=== PATIENT | female | born 1960 | race Caucasian/White ===

== ENCOUNTER 2019-01-03 17:59 | Emergency (ER) | payer OTHER ==
[2019-01-03 18:19] VITALS: BP 154/100; PULSE 97; TEMP 98.9; BMI 27.3
[2019-01-03 19:11] LABS: BASO % 0.5 % (0-2.0); EOS % 0.7 % (0-4.5); HEMATOCRIT 38.5 % (32.4-45.2); MCH 29.3 pg (25.7-33.7); MCHC 33.7 g/dl (32.0-36.0); MEAN PLT VOLUME 7.3 fl (7.5-11.1); MONO % 6.9 % (3.8-10.2); NEUT % 70.9 % (42.8-82.8); PLATELET COUNT 268 K/MM3 (134-434); RBC 4.42 M/mm3 (3.60-5.2); RDW 13.2 % (11.6-15.6); WHITE BLOOD COUNT 8.2 K/mm3 (4.0-10.8)
--- NOTE | 2019-01-03 19:20 | PDOC ---
History of Present Illness - General History Source: Patient Exam Limitations: No Limitations - History of Present Illness Initial Comments: 01/03/19 19:57 The patient is a 58-year-old female with a past medical history significant for HTN, HLD, urinary fibroid, hx of sciatica (with chronic lower back pain) and interstitial cystitis/ OAB (with baseline urinary frequency) presents to the emergency department with abdominal pain. The patient presents with 4 days of RLQ pain that radiates to the LLQ, that initially was intermittent in nature and has progressed into a constant abdominal pain since yesterday. The patient states the pain is 8-9/10 in severity, thats aggravated with sitting up states she has to slouch while driving, with alleviation noted with ambulation and lying down. The patient reports taking half of a baby ASA and a higher dose of her Xanax medication with improvement noted. The patient reports associated symptoms of abdominal bloating, and nausea. The patient reports she is sleeping more than usual. 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 The patient reports a similar incident on the 25 of December, while she was at a hearing, states she was unable to stand up, she had to slouch. Denies fever, chills, diarrhea, hematuria, dysuria. Denies hx of ovarian cyst or abdominal surgery. Denies back pain or flank pain. Allergies: Penicillins PCP: Dr. Lyles. <Josee Alejandra - Last Filed: 01/03/19 21:17> <Lyubov Alvarado - Last Filed: 01/05/19 04:54> - General Chief Complaint: Pain Stated Complaint: LOWER RIGHT QUADRANT PAIN Time Seen by Provider: 01/03/19 19:10 Past History <Josee Alejandra - Last Filed: 01/03/19 21:17> - Past Medical History COPD: No HTN: Yes Hypercholesterolemia: Yes Psychiatric Problems: Yes (ANXIETY DEPRESSION) - Suicide/Smoking/Psychosocial Hx Smoking History: Never smoked Hx Alcohol Use: No Drug/Substance Use Hx: No Substance Use Type: None <Lyubov Alvarado - Last Filed: 01/05/19 04:54> - Past Medical History Allergies/Adverse Reactions: Allergies Allergy/AdvReac Type Severity Reaction Status Date / Time Penicillins Allergy Intermediate Itching Verified 03/22/19 18:01 Home Medications: Ambulatory Orders Alprazolam [Xanax] 0.25 mg PO DAILY 01/03/19 Duloxetine HCl [Cymbalta] 20 mg PO DAILY 01/03/19 Losartan Potassium [Cozaar] 50 mg PO DAILY 01/03/19 Rosuvastatin Calcium [Crestor] 20 mg PO DAILY 01/03/19 Review of Systems - Review of Systems Able to Perform ROS?: Yes Comments:: 01/03/19 19:21 GENERAL/CONSTITUTIONAL: No fever or chills. No weakness. HEAD, EYES, EARS, NOSE AND THROAT: No change in vision. No ear pain or discharge. No sore throat. CARDIOVASCULAR: No chest pain or shortness of breath. RESPIRATORY: No cough, wheezing, or hemoptysis. GASTROINTESTINAL: +right lower quadrant pain that radiates to the left upper quadrant. No nausea, vomiting, diarrhea or constipation. GENITOURINARY: +chronic urinary frequency. No dysuria or change in urination. MUSCULOSKELETAL: No joint or muscle swelling or pain. No neck or back pain. SKIN: No rash NEUROLOGIC: No headache, vertigo, loss of consciousness, or change in strength/ sensation. ENDOCRINE: No increased thirst. No abnormal weight change. HEMATOLOGIC/LYMPHATIC: No anemia, easy bleeding, or history of blood clots. ALLERGIC/IMMUNOLOGIC: No hives or skin allergy. <Josee Alejandra - Last Filed: 01/03/19 21:17> *Physical Exam - Vital Signs Last Vital Signs Temp Pulse Resp BP Pulse Ox 98.9 F 97 H 20 154/100 98 01/03/19 18:01 01/03/19 18:01 01/03/19 18:01 01/03/19 18:01 01/03/19 18:01 - Physical Exam Comments: 01/03/19 19:57 GENERAL: Awake, alert, and fully oriented, in no acute distress HEAD: No signs of trauma EYES: PERRLA, EOMI, sclera anicteric, conjunctiva clear ENT: Auricles normal inspection, hearing grossly normal, nares patent, oropharynx clear without exudates. Moist mucosa NECK: Normal ROM, supple, no lymphadenopathy, JVD, or masses LUNGS: Breath sounds equal, clear to auscultation bilaterally. No wheezes, and no crackles HEART: Regular rate and rhythm, normal S1 and S2, no murmurs, rubs or gallops ABDOMEN: +Mild right lower quadrant tenderness, without masses, rebound tenderness, involuntary guarding, soft. EXTREMITIES: Normal range of motion, no edema. No clubbing or cyanosis. No cords, erythema, or tenderness NEUROLOGICAL: Cranial nerves II through XII grossly intact. Normal speech, normal gait SKIN: Warm, Dry, normal turgor, no rashes or lesions noted. <Josee Alejandra - Last Filed: 01/03/19 21:17> - Vital Signs Last Vital Signs Temp Pulse Resp BP Pulse Ox 98.9 F 97 H 20 154/100 98 01/03/19 18:01 01/03/19 18:01 01/03/19 18:01 01/03/19 18:01 01/03/19 18:01 <Lyubov Alvarado - Last Filed: 01/05/19 04:54> Moderate Sedation - Procedure Monitoring Vital Signs: Procedure Monitoring Vital Signs Temperature 98.9 F 01/03/19 18:01 Pulse Rate 97 H 01/03/19 18:01 Respiratory Rate 20 01/03/19 18:01 Blood Pressure 154/100 01/03/19 18:01 O2 Sat by Pulse Oximetry (%) 98 01/03/19 18:01 <Josee Alejandra - Last Filed: 01/03/19 21:17> - Procedure Monitoring Vital Signs: Procedure Monitoring Vital Signs Temperature 98.9 F 01/03/19 18:01 Pulse Rate 97 H 01/03/19 18:01 Respiratory Rate 20 01/03/19 18:01 Blood Pressure 154/100 01/03/19 18:01 O2 Sat by Pulse Oximetry (%) 98 01/03/19 18:01 <Lyubov Alvarado - Last Filed: 01/05/19 04:54> ED Treatment Course - LABORATORY CBC & Chemistry Diagram: 01/03/19 18:52 01/03/19 18:52 <Josee Alejandra - Last Filed: 01/03/19 21:17> - LABORATORY CBC & Chemistry Diagram: 01/03/19 18:52 01/03/19 18:52 <Lyubov Alvarado - Last Filed: 01/05/19 04:54> Progress Note - Progress Note Progress Note: Documentation has been prepared under my direction and personally reviewed by me in its entirety. I attest that this documented accurately reflects all work, treatment, procedures and medical decision making performed by me. <Lyubov Alvarado - Last Filed: 01/05/19 04:54> Medical Decision Making - Medical Decision Making As noted above, this 58-year-old woman presents with right lower quadrant pain for several days. She has not had significant associated symptoms. Exam as noted. Abdominal/pelvic CT performed to evaluate for acute appendicitis. Interpretation by Dr. Cabral of the radiologist: No definite evidence of acute pathology seen. Although the appendix is not visualized, there were no associated, indirect evidence for acute appendicitis. Incidentally, patient was noted to have hepatic steatosis. She also had some moderate right colon constipation. Right ventral leiomyomata was also noted. Results discussed with the patient. She will be discharged with advice to drink plenty of fluids and increase fiber in her diet. She should follow-up with her hardware supplies sales representative as previously planned within the next 7-10 days. She should return to ER if she has persistent severe pain or develops vomiting/ fever. <Lyubov Alvarado - Last Filed: 01/05/19 04:54> *DC/Admit/Observation/Transfer - Attestations Scribe Attestion: 01/03/19 19:21 Documentation prepared by Josee Alejandra, acting as claim review medical director for Lyubov Alvarado MD. <Josee Alejandra - Last Filed: 01/03/19 21:17> <Lyubov Alvarado - Last Filed: 01/05/19 04:54> Diagnosis at time of Disposition: Abdominal pain Qualifiers: Abdominal location: right lower quadrant Qualified Code(s): R10.31 - Right lower quadrant pain - Discharge Dispostion Disposition: HOME Condition at time of disposition: Stable - Referrals Referrals: Alonzo Lyles MD [Primary Care Provider] - 3 days - Patient Instructions Printed Discharge Instructions: DI for Abdominal Pain-Adult Additional Instructions: Increase fluids as tolerated High-fiber diet Follow-up with Dr. Lyles within the next 3-4 days Follow-up with hardware supplies sales representative next week as scheduled Return to ER if you have severe pain/vomiting/fever - Post Discharge Activity
[2019-01-03 21:17] LABS: ALBUMIN 4.1 g/dl (3.4-5.0); ALK PHOS 101 U/L (45-117); ANION GAP 11 MMOL/L (8-16); BILIRUBIN,TOTAL 0.5 mg/dl (0.2-1); BLOOD UREA NITROGEN 19 mg/dl (7-18); CALCIUM 8.9 mg/dl (8.5-10); CHLORIDE 105 mmol/L (98-107); CO2 23 mmol/L (21-32); CREATININE 0.8 mg/dl (0.55-1.3); GLUCOSE,RANDOM 114 mg/dl (74-106); POTASSIUM 3.8 mmol/L (3.5-5.1); SGOT/AST 26 U/L (15-37); SGPT/ALT 23 U/L (13-61); SODIUM 139 mmol/L (136-145); TOT PROT 6.7 g/dl (6.4-8.2)
== END 2019-01-04 00:19 | disposition home or self-care (01) ==
LOC: FER 17:59
DX: R10.31 Right lower quadrant pain (principal); I10 Essential (primary) hypertension; E78.5 Hyperlipidemia, unspecified; G89.29 Other chronic pain; F41.8 Other specified anxiety disorders
CPT/HCPCS: 36415; 74177-TC; 80053; 85025; 99283-25

== ENCOUNTER 2019-04-19 09:34 | Emergency (ER) | payer OTHER ==
--- NOTE | 2019-04-19 09:35 | PDOC ---
History of Present Illness - General Chief Complaint: Injury Stated Complaint: RIGHT FOOT PAIN Time Seen by Provider: 04/19/19 09:35 - History of Present Illness Initial Comments: 04/19/19 09:36 58yo female presents ambulatory for eval of R knee and ankle pain. Pt states she was watering the plants on her friends porch when she misjudged the step and fell twisting her ankle and knee. Pt denies head injury or loc. Pt denies neck or back pain. Pt states she was able to get up and walk after but had pain to the R lateral ankle and medial knee. Pt with small amount of soft tissue swelling to inferior medial aspect of the knee and to the R lateral malleolus. Pt denies cp/sob/palpitations prior to the event. Pt denies abd pain. No n/v/d. Pt states she was wearing flip flops but and that her foot inverted on the R when she fell. Pt was able to drive herself to the ED and ambulated into the ed. PMHx: HTN, HLD, urinary fibroid, hx of sciatica (with chronic lower back pain) and interstitial cystitis/ OAB (with baseline urinary frequency) PShx: tonsils, knee arthroscopy all: pcn and vomits tylenol Past History - Past Medical History Allergies/Adverse Reactions: Allergies Allergy/AdvReac Type Severity Reaction Status Date / Time Penicillins Allergy Intermediate Itching Verified 04/19/19 09:35 Home Medications: Ambulatory Orders Alprazolam [Xanax] 0.25 mg PO DAILY 01/03/19 Duloxetine HCl [Cymbalta] 20 mg PO DAILY 01/03/19 Losartan Potassium [Cozaar] 50 mg PO DAILY 01/03/19 Rosuvastatin Calcium [Crestor] 20 mg PO DAILY 01/03/19 COPD: No HTN: Yes Hypercholesterolemia: Yes Psychiatric Problems: Yes (ANXIETY DEPRESSION) - Suicide/Smoking/Psychosocial Hx Smoking History: Never smoked Hx Alcohol Use: No Drug/Substance Use Hx: No Substance Use Type: None Review of Systems - Review of Systems Able to Perform ROS?: Yes Is the patient limited Mongolian proficient: No Constitutional: No: Chills, Fever HEENTM: No: Nose Pain, Throat Pain Respiratory: No: Cough, Shortness of Breath Cardiac (ROS): No: Chest Pain, Palpitations, Syncope ABD/GI: No: Diarrhea, Nausea, Vomiting, Abdominal cramping : No: Burning, Dysuria Musculoskeletal: Yes: Joint Pain (R knee and ankle pain). No: Back Pain, Neck Pain Integumentary: No: Rash Neurological: No: Headache, Numbness, Paresthesia All Other Systems: Reviewed and Negative *Physical Exam - Vital Signs 04/19/19 09:55 Selected Entries 04/19/19 09:35 Temperature 98 F Pulse Rate 88 Respiratory 16 Rate Blood Pressure 156/84 O2 Sat by Pulse 98 Oximetry (%) Weight 81.647 kg - Physical Exam General Appearance: Yes: Nourished, Appropriately Dressed. No: Apparent Distress HEENT: positive: EOMI, Normal ENT Inspection, Normal Voice Neck: positive: Supple. negative: Tender lateral, Tender midline Respiratory/Chest: positive: Lungs Clear, Normal Breath Sounds. negative: Respiratory Distress Cardiovascular: positive: Regular Rhythm, Regular Rate, S1, S2. negative: Edema Gastrointestinal/Abdominal: positive: Normal Bowel Sounds, Soft. negative: Guarding, Rebound, Tenderness Musculoskeletal: positive: Normal Inspection, Other (no midline ttp, no step offs or deformities c/t/l spine). negative: CVA Tenderness, Decreased Range of Motion, Vertebral Tenderness Extremity: positive: Normal Capillary Refill, Swelling (R lateral malleolus mild soft tissue swelling just anterior, ttp over 4th metatarsal on the R, soft tissue swelling to medial knee with ttp over medial distal insertion of MCL, neg anterior and posterior drawer, normal flexion and extension of knee and ankle, mild ttp over distal fibula just proximal to the lateral malleolus, pedal pulses intact, muscle strength intact, no ecchymosis, brisk cap refill, no laxity of ankle joint) Integumentary: positive: Normal Color, Dry, Warm Neurologic: positive: service parts driver II-XII NML intact, Fully Oriented, Alert, Normal Mood/ Affect, Motor Strength 5/5, Other (ambulated into the ED). negative: Sensory Deficit Medical Decision Making - Medical Decision Making 04/19/19 09:59 a/p: 58yo female with R knee and ankle pain after a mechanical trip and fall -no head injury, neuro intact -medial knee ttp, but able to range the knee -distal fib and 4th metatarsal ttp -will obtain xrays -motrin for pain -pt neuro intact -no anticoags, no head injury 04/19/19 11:01 no acute findings on knee xray prelim read 04/19/19 11:10 no acute fx on foot/ankle or knee xray 04/19/19 11:16 discussed xray findings with the patient foot wrapped in [place] wrap and hard sole shoe stable for dc to home discussed follow up with ortho if pain continues as xrays look at bones and not ligament damage discussed she may need more imaging as an outpt pt ambulatory in the ED discussed all reasons to return to the ED neuro intact answered all questions *DC/Admit/Observation/Transfer Diagnosis at time of Disposition: Right ankle sprain, Foot contusion, Knee contusion, Fall - Discharge Dispostion Disposition: HOME Condition at time of disposition: Stable Decision to Admit order: No - Referrals Referrals: Tino Scott [Primary Care Provider] - Miles Lora DO [Staff Physician] - Jeff Wong MD [Staff Physician] - - Patient Instructions Printed Discharge Instructions: DI for Ankle Sprain, DI for Contusion Additional Instructions: Please apply ice- 20 min on and 20 min off. Please keep the foot elevated. Please take ibuprofen as needed and discussed for pain. Please follow up with your PMD and make an appointment to see the orthopedist if the pain continues past 48 hours. Please return to the ED with any further concerns or complaints. Please avoid any further falls or injuries. - Post Discharge Activity
[2019-04-19] MEDS ORDERED: IBUPROFEN 200 MG TABLET PO ONE (09:53)
[2019-04-19 10:08] VITALS: BP 156/84; PULSE 88; TEMP 98; BMI 28.1
[2019-04-19] MEDS ORDERED: IBUPROFEN 400 MG TABLET (FP) PO ONE (10:22)
== END 2019-04-19 11:30 | disposition home or self-care (01) ==
LOC: FER 09:34
DX: S93.401A Sprain of unspecified ligament of right ankle, initial encounter (principal); S90.31XA Contusion of right foot, initial encounter; S80.01XA Contusion of right knee, initial encounter; W18.39XA Other fall on same level, initial encounter; Y93.89 Activity, other specified; Y92.89 Other specified places as the place of occurrence of the external cause; F41.8 Other specified anxiety disorders; I10 Essential (primary) hypertension; E78.00 Pure hypercholesterolemia, unspecified
CPT/HCPCS: 73562-TC-RT-FY; 73610-TC-RT-FY; 73630-TC-RT-FY; 99283-25

== ENCOUNTER 2022-09-03 17:33 | Emergency (ER) | payer OTHER ==
[2022-09-03] MEDS ORDERED: ACETAMINOPHEN 325 MG TABLET (FP) PO ONE (17:40)
[2022-09-03] MEDS ORDERED: ACETAMINOPHEN 325 MG TABLET (FP) ONE (17:44)
[2022-09-03 18:18] VITALS: BP 157/88; PULSE 90; RESP 16; TEMP 99; BMI 31.3
== END 2022-09-03 18:59 | disposition home or self-care (01) ==
LOC: FER 17:33
DX: S92.404A Nondisplaced unspecified fracture of right great toe, initial encounter for closed fracture (principal)
CPT/HCPCS: 73630-TC-RT-FY; 99284-25

== ENCOUNTER 2025-04-03 15:51 | Emergency (ER) | payer OTHER ==
[2025-04-03 15:59] VITALS: BP 132/77; PULSE 83; RESP 16; TEMP 98.1; BMI 30.5
== END 2025-04-03 16:50 | disposition home or self-care (01) ==
LOC: FER 15:51
DX: S00.06XA Insect bite (nonvenomous) of scalp, initial encounter (principal); W57.XXXA Bitten or stung by nonvenomous insect and other nonvenomous arthropods, initial encounter
CPT/HCPCS: 99283-25